=== PATIENT | female | born 1995 | race Hispanic/Latino ===

== ENCOUNTER 2021-10-10 13:46 | Inpatient (IN) | payer BC, OTHER ==
[~2021-10-10] VITALS: Ht 154.9 cm; Wt 113.8 kg
[2021-10-10 14:13] LABS: BASOPHILS % (AUTO) 0.2 % (0.0-5.0); EOSINOPHILS % (AUTO) 0.2 % (0.0-8.0); LYMPHOCYTES % (AUTO) 10.5 % (21.0-51.0); MEAN CORPUSCULAR HEMOGLOBIN 25.7 pg (27.0-33.0); MEAN CORPUSCULAR HGB CONC 31.7 g/dL (32.0-36.0); MONOCYTES % (AUTO) 4.3 % (3.0-13.0); NEUTROPHILS % (AUTO) 84.2 % (40.0-77.0); PLATELET COUNT (AUTO) 429 K/uL (130-400); RED BLOOD CELL COUNT(AUTO) 5.68 MIL/uL (4.00-5.50); RED CELL DISTRIBUTION WIDTH 14.2 % (11.0-15.5); WHITE BLOOD COUNT (AUTO) 17.2 K/uL (4.8-10.8)
[2021-10-10 14:19] LABS: APPEARANCE,URINE CLOUDY (CLEAR); BILIRUBIN,URINE SMALL (NEGATIVE); COLOR,URINE YELLOW (YELLOW); GLUCOSE, URINE (UA) NEGATIVE (NEGATIVE); KETONES,URINE 5 mg/dL (NEGATIVE); LEUKOCYTE ESTERASE ,URINE TRACE (NEGATIVE); NITRATE,URINE POSITIVE (NEGATIVE); OCCULT BLOOD,URINE LARGE (NEGATIVE); PROTEIN,URINE 100 mg/dL (NEGATIVE)
[2021-10-10 14:27] LABS: CREATININE 0.8 mg/dL (0.5-1.5); POTASSIUM 3.7 mmol/L (3.5-5.1)
[2021-10-10] MEDS ORDERED: PROMETHAZINE HCL 25 MG/ML 1ML AMPULE IM ONE (14:30)
[2021-10-10] MEDS ORDERED: KETOROLAC 30MG VIAL (30MG/ML) IVP ONE (14:30)
[2021-10-10] MEDS ORDERED: 0.9%NACL 1000ML 1,000 ML IV SCH (14:30)
[2021-10-10 14:32] LABS: ALBUMIN 3.7 g/dL (3.5-5.0); BILIRUBIN,TOTAL 0.6 mg/dL (0.2-1.0); TOTAL PROTEIN, SERUM 8.6 g/dL (6.0-8.3)
[2021-10-10 14:43] LABS: HCG,QUAL RESULT NEGATIVE (NEGATIVE)
[2021-10-10 14:59] LABS: BACTERIA,URINE Few /HPF (None Seen); WBC,URINE 0-1 /HPF (0-1)
[2021-10-10] MEDS ORDERED: CEFTRIAXONE 1G VIAL IVP ONE (15:00)
[2021-10-10] MEDS ORDERED: MORPHINE 2 MG SYG IVP ONE (16:30)
[2021-10-10] MEDS ORDERED: TAMSULOSIN HCL 0.4 MG CAP.ER.24H PO SCH (16:30)
[2021-10-10] MEDS: 0.9%NACL 1000ML 1,000 ML IV SCH (16:49)
[2021-10-10] MEDS ORDERED: ACETAMINOPHEN 500 MG TABLET PO PRN (17:00)
[2021-10-10 17:02] LABS: INR 0.99 (0.85-1.15); PROTHROMBIN TIME 10.8 SEC (9.6-11.6)
[2021-10-10 17:03] LABS: PARTIAL THROMBOPLASTIN TIME 31.1 SEC (26.3-35.5)
[2021-10-10 17:12] LABS: HEMOGLOBIN A1C 6.4 % (4.0-6.0)
[2021-10-10 17:18] LABS: CRP QUANTITATIVE 27.9 mg/L (0.00-9.0); THYROID STIMULATING HORMONE 1.48 uIU/mL (0.36-3.74)
[2021-10-10] MEDS: HYDROMORPHONE 0.5 MG SYG (0.5MG/0.5ML) IVP PRN ×2 (18:00→23:21)
[2021-10-10] MEDS: CEFTRIAXONE 1G VIAL IVP SCH (20:46)
[2021-10-10] MEDS: FAMOTIDINE 20MG TAB PO SCH (20:46)
[2021-10-10 21:10] VITALS: BP 111/69
[2021-10-10] MEDS: KETOROLAC 15MG/ML VIAL (15MG/ML) IV PRN (21:28)
[2021-10-11] VITALS (7 sets, daily range): BP systolic 97–117; BP diastolic 64–78
[2021-10-11] MEDS: KETOROLAC 15MG/ML VIAL (15MG/ML) IV PRN (02:38)
[2021-10-11] MEDS: ONDANSETRON 4MG INJ IVP PRN ×3 (02:40→18:54)
[2021-10-11] MEDS: 0.9%NACL 1000ML 1,000 ML IV SCH ×3 (04:43→08:06)
[2021-10-11 06:31] LABS: BASOPHILS % (AUTO) 0.3 % (0.0-5.0); EOSINOPHILS % (AUTO) 0.4 % (0.0-8.0); HEMATOCRIT 38.4 % (36-48); LYMPHOCYTES % (AUTO) 15.4 % (21.0-51.0); MEAN CORPUSCULAR HEMOGLOBIN 25.9 pg (27.0-33.0); MEAN CORPUSCULAR HGB CONC 31.8 g/dL (32.0-36.0); MEAN CORPUSCULAR VOLUME 81.5 fL (79-99); MONOCYTES % (AUTO) 7.3 % (3.0-13.0); NEUTROPHILS % (AUTO) 76.1 % (40.0-77.0); PLATELET COUNT (AUTO) 299 K/uL (130-400); RED BLOOD CELL COUNT(AUTO) 4.71 MIL/uL (4.00-5.50); RED CELL DISTRIBUTION WIDTH 14.3 % (11.0-15.5); WHITE BLOOD COUNT (AUTO) 12.4 K/uL (4.8-10.8)
[2021-10-11 06:45] LABS: ALBUMIN 2.8 g/dL (3.5-5.0); BILIRUBIN,TOTAL 0.6 mg/dL (0.2-1.0); CREATININE 0.9 mg/dL (0.5-1.5); MAGNESIUM 1.8 mg/dL (1.80-2.40); POTASSIUM 3.8 mmol/L (3.5-5.1); TOTAL PROTEIN, SERUM 6.7 g/dL (6.0-8.3)
[2021-10-11] MEDS: HYDROMORPHONE 0.5 MG SYG (0.5MG/0.5ML) IVP PRN (06:58)
[2021-10-11] MEDS ORDERED: HYDROMORPHONE 1 MG INJ IVP PRN (08:30)
[2021-10-11] MEDS ORDERED: HYDROMORPHONE 1 MG INJ ONE (08:36)
[2021-10-11] MEDS: TAMSULOSIN HCL 0.4 MG CAP.ER.24H PO SCH (08:43)
[2021-10-11] MEDS: FAMOTIDINE 20MG TAB PO SCH ×2 (08:43→21:11)
[2021-10-11] MEDS: CEFTRIAXONE 1G VIAL IVP SCH ×2 (08:43→21:11)
[2021-10-11] MEDS: HYDROMORPHONE 1 MG INJ IVP PRN (15:16)
[2021-10-12 04:30] VITALS: BP 121/79
[2021-10-12 05:00] LABS: BASOPHILS % (AUTO) 0.3 % (0.0-5.0); EOSINOPHILS % (AUTO) 0.8 % (0.0-8.0); HEMATOCRIT 38.7 % (36-48); LYMPHOCYTES % (AUTO) 23.7 % (21.0-51.0); MEAN CORPUSCULAR HEMOGLOBIN 25.8 pg (27.0-33.0); MEAN CORPUSCULAR HGB CONC 31.5 g/dL (32.0-36.0); MEAN CORPUSCULAR VOLUME 81.8 fL (79-99); NEUTROPHILS % (AUTO) 67.8 % (40.0-77.0); PLATELET COUNT (AUTO) 278 K/uL (130-400); RED BLOOD CELL COUNT(AUTO) 4.73 MIL/uL (4.00-5.50); RED CELL DISTRIBUTION WIDTH 14.2 % (11.0-15.5); WHITE BLOOD COUNT (AUTO) 9.4 K/uL (4.8-10.8)
[2021-10-12] MEDS: HYDROMORPHONE 1 MG INJ IVP PRN (05:17)
[2021-10-12 05:19] LABS: CREATININE 0.7 mg/dL (0.5-1.5); POTASSIUM 3.5 mmol/L (3.5-5.1)
[2021-10-12 08:00] VITALS: BP 104/65
[2021-10-12] MEDS: FAMOTIDINE 20MG TAB PO SCH ×2 (08:23→21:30)
[2021-10-12] MEDS: TAMSULOSIN HCL 0.4 MG CAP.ER.24H PO SCH (08:23)
[2021-10-12] MEDS: CEFTRIAXONE 1G VIAL IVP SCH ×2 (08:23→21:30)
[2021-10-12] MEDS: ONDANSETRON 4MG INJ IVP PRN (08:52)
[2021-10-12] MEDS ORDERED: ACETAMINOPHEN WITH CODEINE 1 TAB TAB PO PRN (11:00)
[2021-10-12] MEDS ORDERED: HYDROCODONE/ACETAMINOPHEN 10/325 MG TAB PO PRN (11:00)
[2021-10-12] MEDS ORDERED: PROMETHAZINE HCL 25 MG TABLET PO PRN (11:00)
[2021-10-12 11:50] VITALS: BP 103/65
[2021-10-12] MEDS: ACETAMINOPHEN WITH CODEINE 1 TAB TAB PO PRN (13:13)
[2021-10-12 16:00] VITALS: BP 137/82
[2021-10-12] MEDS: 0.9%NACL 1000ML 1,000 ML IV SCH ×2 (16:30→18:26)
[2021-10-12 20:39] VITALS: BP 98/60
[2021-10-13 00:12] VITALS: BP 97/60
[2021-10-13] MEDS: ACETAMINOPHEN WITH CODEINE 1 TAB TAB PO PRN ×2 (01:23→07:22)
[2021-10-13] MEDS: 0.9%NACL 1000ML 1,000 ML IV SCH (03:20)
[2021-10-13 04:06] VITALS: BP 104/60
[2021-10-13 05:28] LABS: BASOPHILS % (AUTO) 0.4 % (0.0-5.0); EOSINOPHILS % (AUTO) 1.6 % (0.0-8.0); HEMATOCRIT 36.6 % (36-48); LYMPHOCYTES % (AUTO) 30.2 % (21.0-51.0); MEAN CORPUSCULAR HEMOGLOBIN 25.4 pg (27.0-33.0); MEAN CORPUSCULAR HGB CONC 30.3 g/dL (32.0-36.0); MEAN CORPUSCULAR VOLUME 83.8 fL (79-99); MONOCYTES % (AUTO) 7.8 % (3.0-13.0); NEUTROPHILS % (AUTO) 59.7 % (40.0-77.0); PLATELET COUNT (AUTO) 263 K/uL (130-400); RED BLOOD CELL COUNT(AUTO) 4.37 MIL/uL (4.00-5.50); RED CELL DISTRIBUTION WIDTH 14.1 % (11.0-15.5); WHITE BLOOD COUNT (AUTO) 7.5 K/uL (4.8-10.8)
[2021-10-13 05:55] LABS: CREATININE 0.7 mg/dL (0.5-1.5); POTASSIUM 3.8 mmol/L (3.5-5.1)
[2021-10-13 08:00] VITALS: BP 104/78
[2021-10-13] MEDS: FAMOTIDINE 20MG TAB PO SCH (09:11)
[2021-10-13] MEDS: TAMSULOSIN HCL 0.4 MG CAP.ER.24H PO SCH (09:11)
[2021-10-13] MEDS: CEFTRIAXONE 1G VIAL IVP SCH (09:11)
[2021-10-13] MEDS ORDERED: PROM25TA7 PO (11:15)
[2021-10-13] MEDS ORDERED: CEFU500T67 PO (11:15)
[2021-10-13] MEDS ORDERED: TAMS-1 PO (11:15)
[2021-10-13] MEDS ORDERED: ACET-2079 PO (11:15)
[2021-10-13 11:58] VITALS: BP 115/71
== END 2021-10-13 14:40 | disposition home or self-care (01) | DRG 690 ==
LOC: EDH 13:46 → EDHIP 13:47 → 3BH 20:59
PROVIDERS: ADMIT Internal Medicine; ATTEND Internal Medicine
DX: N13.6 Pyonephrosis (principal); Z68.42 Body mass index [BMI] 45.0-49.9, adult; E66.01 Morbid (severe) obesity due to excess calories; D72.829 Elevated white blood cell count, unspecified; Z20.822 Contact with and (suspected) exposure to COVID-19; Z87.442 Personal history of urinary calculi; Z83.3 Family history of diabetes mellitus; Z82.49 Family history of ischemic heart disease and other diseases of the circulatory system; R73.03 Prediabetes
CPT/HCPCS: 36415; 74176; 80048; 80053; 81001; 81025; 83036; 83690; 83735; 84145; 84443; 85025; 85610; 85651; 85730; 86140; 87077; 87088; 87186; 87635; G0378; J0696; J1170; J1885; J2405; J2550; J7030; Q0169